=== PATIENT | male | born 2000 | race Caucasian/White ===

== ENCOUNTER 2023-08-16 10:08 | Emergency (ER) | payer SELFPAY ==
[2023-08-16 11:17] LABS: Bilirubin Negative (Negative); Blood, Urine Negative (Negative); CAUTI Indications for Culture Dysuria,urgency,freq; Clarity Clear (Clear); Glucose, Urine (Dipstick) Normal (Negative); Ketone, Urine Negative (Negative); Leukocyte Negative Leu/uL (Negative); Nitrite Negative (Negative); Protein, Urine (Dipstick) 70 mg/dL (Neg-Trace); RBC/HPF 0-3 HPF (0-3); Specific Gravity, Urine 1.016 (1.002-1.036); Squamous Epithelial None Seen HPF (0-3); Urobilinogen Normal mg/dL (Less than 2); WBC/HPF 0-3 HPF (0-3); pH, Urine 7.5 (5.0-9.0)
[2023-08-16 11:33] LABS: Bacteria/HPF 1+ HPF (None Seen)
[2023-08-16 11:34] LABS: Urine Culture Reflex No No
== END 2023-08-16 12:28 | disposition home or self-care (01) ==
LOC: ERS 10:08
DX: I86.1 Scrotal varices (principal); R80.9 Proteinuria, unspecified
CPT/HCPCS: 76870; 81001; 87086; 93976